=== PATIENT | male | born 2000 | race Hispanic/Latino ===

== ENCOUNTER 2024-08-25 20:21 | Emergency (ER) | payer SELFPAY ==
[~2024-08-25] VITALS: Ht 172.7 cm; Wt 79.0 kg
[2024-08-25] MEDS ORDERED: Diph, Acellular Pertussis, Tet 0.5 ML/VIAL (Tdap) SDV IM ONE (22:00)
[2024-08-25] MEDS ORDERED: CLINDAMYCIN HCL 150 MG CAP PO ONE (22:00)
[2024-08-25] MEDS ORDERED: BACITRACIN BASE 15 GM TUBE TOP PRN (22:00)
[2024-08-26] MEDS ORDERED: CLINDAMYCIN HC150 MG PO (00:04)
[2024-08-26 00:20] VITALS: BP 127/71
== END 2024-08-26 00:20 | disposition home or self-care (01) | DRG 605 ==
LOC: ED 20:21
DX: S61.213A Laceration without foreign body of left middle finger without damage to nail, initial encounter (principal); S61.215A Laceration without foreign body of left ring finger without damage to nail, initial encounter; W29.3XXA Contact with powered garden and outdoor hand tools and machinery, initial encounter
CPT/HCPCS: 90715